=== PATIENT | female | born 1945 | race Caucasian/White ===

== ENCOUNTER → 2020-07-31 07:12 | Outpatient (CLI) | payer MEDICARE, SELFPAY ==
[2020-07-31 20:35] LABS: SARS-CoV-2 RNA PCR Negative
== END ==
PROVIDERS: PCP Internal Medicine
DX: R68.89 Other general symptoms and signs (principal); Z20.822 Contact with and (suspected) exposure to COVID-19
CPT/HCPCS: C9803; U0003; U0005

== ENCOUNTER → 2021-08-02 10:11 | Outpatient (CLI) | payer MEDICARE, SELFPAY ==
--- NOTE | ~2021-08-02 | MR_ITS ---
EXAMINATION: MR lumbar spine wo con DATE: 08/02/2021 10:46 INDICATION: Lumbar radiculopathy. Low back pain. TECHNIQUE: Magnetic resonance imaging (MRI) of the lumbar spine was performed without intravenous con trast. Sequences included sagittal T2-weighted FSE, sagittal T2-weighted FS FSE, sagittal T1-weighted FSE, and axial T2-weighted FSE. COMPARISON: None FINDINGS: There is 50 degrees levoscoliosis of thoracolumbar spine. There is severely decreased disc height at T9-T10 and T10-T11, moderately decreased disc height at T11-T12, and severely decreased dis c height from T12-L1 through L5-S1 with endplate remodeling. The distal spinal cord signal intensity is normal. The conus medullaris is at L1. The following disc levels are specifically discussed: L1-L2: The disc is bulging and has an annular fissure. There is moderate bilateral facet joint osteoa rthritis. There is mild bilateral neural foraminal stenosis. There is mild central canal stenosis. L2-L3: The disc is bulging and has an annular fissure. There is severe bilateral facet joint osteoart hritis. There is mild bilateral neural foraminal stenosis. There is mild central canal stenosis. L3-L4: The disc is bulging and has an annular fissure. There is severe bilateral facet joint osteoart hritis. There is moderate right and mild left neural foraminal stenosis. There is mild central canal stenosis. L4-L5: The disc is bulging and has an annular fissure. There is severe bilateral facet joint osteoart hritis. There is mild right and moderate left neural foraminal stenosis. There is mild central canal stenosis. There is severe stenosis of left lateral recess. L5-S1: The disc is bulging and has an annular fissure. There is severe bilateral facet joint osteoart hritis. There is mild right and moderate left neural foraminal stenosis. There is mild central canal stenosis. IMPRESSION: 1. Severe lumbar and lower thoracic spondylosis. 2. Thoracolumbar levoscoliosis. Reviewed, dictated and finalized at location A. 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
== END ==
PROVIDERS: PCP Internal Medicine; Visit Provider Nurse Practitioner Adult Health
DX: M47.26 Other spondylosis with radiculopathy, lumbar region (principal); M47.894 Other spondylosis, thoracic region
CPT/HCPCS: 72148

== ENCOUNTER 2021-11-25 14:56 | Outpatient (CLI) | payer MEDICARE, SELFPAY ==
--- NOTE | ~2021-11-25 | XR_ITS ---
. EXAMINATION: XR scoliosis survey DATE: 11/25/2021 15:50 INDICATION: Scoliosis. TECHNIQUE: Anteroposterior and lateral views of the entire spine standing were obtained. COMPARISON: Lumbar spine MRI 08/02/2021 FINDINGS: There is a total left hip arthroplasty. There is severe right hip osteoarthritis. Left isch ial tuberosity stands 6 mm higher than the left. There are 12 pairs of ribs. There are 5 lumbar segme nts. There is 2 mm anterolisthesis of C2 on C3 and C3 on C4, 2 mm retrolisthesis of C4 on C5 and C5 o n C6, and 2 mm anterolisthesis of C7 on T1. There is 46 degrees dextroscoliosis from T4 to T11 by the Wick method. There is 60 degrees levoscoliosis from T11 to L4. There is mild lordosis of the mid tho racic spine. There is severe cervical, thoracic, and lumbar spondylosis. IMPRESSION: 1. Scoliosis. 2. Severe spondylosis. Reviewed, dictated and finalized at location A.
--- NOTE | ~2021-11-25 | XR_ITS ---
EXAMINATION: XR lumbar spine min 4V DATE: 11/25/2021 15:50 INDICATION: Scoliosis. Chronic back pain and arthritis. TECHNIQUE: 4 views of lumbar spine standing including flexion and extension views were obtained. COMPARISON: Lumbar spine MRI 08/02/2021 FINDINGS: There is 56 degrees levoscoliosis of thoracolumbar spine. There is no abnormal motion with flexion or extension. Vertebral body heights are normal. There is severely decreased disc height in l ower thoracic spine, moderately decreased disc height at T12-L1, and severely decreased disc height f rom L1-L2 through L5-S1 with endplate remodeling. There is multilevel severe facet joint osteoarthrit is. There is severe right hip osteoarthritis. There is a total left hip arthroplasty. IMPRESSION: 1. Lumbar levoscoliosis. 2. Severe lumbar spondylosis. Reviewed, dictated and finalized at location A.
== END 2021-11-25 14:57 | disposition home or self-care (01) ==
PROVIDERS: PCP Internal Medicine; Visit Provider Neurological Surgery
DX: M41.9 Scoliosis, unspecified (principal); M47.896 Other spondylosis, lumbar region
CPT/HCPCS: 72082; 72110

== ENCOUNTER → 2022-09-04 08:49 | Outpatient (CLI) | payer MEDICARE, SELFPAY ==
--- NOTE | ~2022-09-04 | MR_ITS ---
MRI of the lumbar spine Clinical History: Radiculopathy Technique: Axial T2-weighted images, and sagittal T1-weighted, T2-weighted, and T2 fat-sat images wer e acquired. COMPARISON: 08/02/2021 Findings: Levoscoliosis is probably unchanged from prior exam. No acute fracture or definite subluxat ion identified. Osseous alignment is essentially unchanged. There are reactive marrow signal changes about the T10-T11 disc space due to underlying degenerative disc disease. No suspicious bone marrow s ignal abnormality seen. At L1-L2, there is degenerative disc narrowing with diffuse disc bulge and mild facet arthropathy. No guille spinal canal stenosis. There is severe right neural foraminal narrowing. Left neural foramen p reserved. At L2-L3, there is advanced degenerative disc narrowing. There is mild disc bulge with advanced facet arthropathy. No spinal canal stenosis. There is mild to moderate right neural foraminal narrowing. L eft neural foramen preserved. L3-L4, there is severe degenerative disc narrowing. There is minimal disc bulge with facet arthropath y. No spinal canal stenosis. There is probable severe right neural foraminal narrowing and moderate l eft neural foraminal narrowing. At L4-L5, there is advanced degenerative disc narrowing. There is diffuse disc bulge with facet arthr opathy. There is severe left lateral recess stenosis. There is severe left neural foraminal compromis e. There is minimal right neural foraminal narrowing. At L5-S1, there is degenerative disc narrowing with mild disc bulge and facet arthropathy. No guille s huey canal stenosis. There is severe left neural foraminal narrowing. Right neural foramen preserved . Paravertebral soft tissues are unremarkable. Impression: Moderate to advanced degenerative spondylosis, with multilevel advanced neural foraminal narrowing an d levoscoliosis. Please see details above. Severe left lateral recess stenosis at L4-L5. Reviewed, dictated and finalized at location . Impression: Moderate to advanced degenerative spondylosis, with multilevel advanced neural foraminal narrowing and levoscoliosis. Please see details above. Severe left lateral recess stenosis at L4-L5.
== END ==
PROVIDERS: PCP Internal Medicine; Visit Provider Nurse Practitioner Family
DX: M47.26 Other spondylosis with radiculopathy, lumbar region (principal)
CPT/HCPCS: 72148

== ENCOUNTER → 2022-09-30 12:51 | Outpatient (CLI) | payer MEDICARE, SELFPAY ==
--- NOTE | ~2022-09-30 | MR_ITS ---
EXAMINATION: MR thoracic spine wo con DATE: 09/30/2022 13:30 INDICATION: Mid to low back pain. Lumbar radiculopathy. TECHNIQUE: Magnetic resonance imaging (MRI) of the thoracic spine was performed without intravenous c ontrast. COMPARISON: None FINDINGS: There is 36 degrees dextroscoliosis of thoracic spine and 52 degrees levoscoliosis of thora columbar spine. There is 2 mm retrolisthesis of C4 on C5 and 2 mm anterolisthesis of C7 on T1. There is interbody fusion at C4-C5. There is severely decreased disc height from C5-C6 through T10-T11, mod erately decreased disc height at T11-T12, and severely decreased disc height at T12-L1 and L1-L2. The discs are bulging at most levels. There is mild central canal stenosis at the disc levels from C4-C5 through T7-T8 and from T9-T10 through L1-L2. There is multilevel facet joint osteoarthritis, severe at multiple levels. There is multilevel mild neural foraminal stenosis bilaterally. On the left, ther e is moderate neural foraminal stenosis at T4-T5 and T10-T11. The spinal cord signal intensity is nor mal. The conus medullaris is at L1. IMPRESSION: 1. Severe thoracic spondylosis. 2. Scoliosis. Reviewed, dictated and finalized at location A.
== END ==
PROVIDERS: PCP Internal Medicine; Visit Provider Nurse Practitioner Family
DX: M47.24 Other spondylosis with radiculopathy, thoracic region (principal); M41.9 Scoliosis, unspecified
CPT/HCPCS: 72146

== ENCOUNTER → 2023-02-19 11:57 | Outpatient (CLI) | payer MEDICARE, SELFPAY ==
--- NOTE | ~2023-02-19 | XR_ITS ---
Left Hand Technique: PA, oblique, and lateral views were obtained. Clinical History: Osteoarthritis Findings: No acute fracture or dislocation is seen. There is severe osteoarthritis, possible erosive osteoarthritis, at the fourth PIP joint. There is also severe osteoarthritis at the second and third PIP joints and third MCP joint. There are moderate to advanced degenerative changes throughout the DI P joints. There is advanced degenerative change of the interphalangeal joint of the thumb. Soft tissu es are unremarkable. Impression: Extensive osteoarthritis, predominantly involving the interphalangeal joints, as well as the third MC P joint. Reviewed, dictated and finalized at location M. Impression: Extensive osteoarthritis, predominantly involving the interphalangeal joints, a s well as the third MCP joint.
== END ==
PROVIDERS: PCP Internal Medicine; Visit Provider Internal Medicine
DX: M19.042 Primary osteoarthritis, left hand (principal)
CPT/HCPCS: 73130

== ENCOUNTER 2024-08-18 14:23 | Outpatient (CLI) | payer MEDICARE, SELFPAY ==
--- NOTE | ~2024-08-18 | CT_ITS ---
EXAMINATION: CT lumbar spine wo con DATE: 08/18/2024 14:54 INDICATION: Lumbar spondylosis. Lumbar radicular pain. TECHNIQUE: Computed tomography (CT) of the lumbar spine was performed without intravenous contrast. A utomated exposure control and iterative reconstruction technique were employed. The dose-length produ ct was 530.62 mGy-cm. COMPARISON: Lumbar spine radiographs 08/18/2024 FINDINGS: There is 50 degrees levoscoliosis of thoracolumbar spine. There is mild chronic anterior we dging of T11-L1 vertebral bodies. There is severely decreased disc height from T10-T11 through L5-S1. The following disc levels are specifically discussed: L1-L2: The disc is bulging. There is moderate right and severe left facet joint osteoarthritis. There is mild bilateral neural foraminal stenosis. There is mild central canal stenosis. L2-L3: The disc is bulging. There is severe bilateral facet joint osteoarthritis. There is mild bilat eral neural foraminal stenosis. There is mild central canal stenosis. L3-L4: The disc is bulging. There is severe bilateral facet joint osteoarthritis. There is mild bilat eral neural foraminal stenosis. There is mild central canal stenosis. L4-L5: The disc is bulging. There is severe bilateral facet joint osteoarthritis. There is mild right and moderate left neural foraminal stenosis. There is mild central canal stenosis. L5-S1: The disc is bulging. There is severe bilateral facet joint osteoarthritis. There is mild bilat eral neural foraminal stenosis. There is mild central canal stenosis. IMPRESSION: 1. Severe lumbar spondylosis. 2. Thoracolumbar levoscoliosis. Reviewed, dictated and finalized at location L.
--- NOTE | ~2024-08-18 | XR_ITS ---
3 VIEWS LUMBAR SPINE Ordering provider: Anton Wei, CORDWOOD CUTTER History: . Presence of neurostimulator . Comparison: November 11, 2021 FINDINGS: VERTEBRAL BODIES:Levoscoliosis. Multilevel degenerative disc disease. No visible fracture or subluxa tion. DISK SPACES: Narrowing of all disc spaces. Multilevel facet joint disease. SOFT TISSUES: Normal. Spinal stimulator is noted. . Bilateral hip arthroplasty. IMPRESSION: No acute osseous abnormality lumbar spine. Multilevel degenerative disc disease. Reviewed, dictated and finalized at location A.
== END 2024-08-18 14:24 | disposition home or self-care (01) ==
PROVIDERS: PCP Internal Medicine; Visit Provider Nurse Practitioner Family
DX: M47.26 Other spondylosis with radiculopathy, lumbar region (principal)
CPT/HCPCS: 72100; 72131

== ENCOUNTER 2024-10-06 09:26 | Outpatient (CLI) | payer MEDICARE, SELFPAY ==
--- NOTE | ~2024-10-06 | XR_ITS ---
3 VIEWS THORACIC SPINE Ordering provider: Chiqui Carvajal MD History: . M41.9 - Scoliosis, unspecified . Comparison: None. FINDINGS: VERTEBRAL BODIES: Normal height and alignment. No visible fracture or subluxation. S-shaped scoliosis . Degenerative changes of the spine. DISK SPACES: Multilevel disc space narrowing of the upper mid and lower thoracic areas. SOFT TISSUES: Normal. Spinal stimulator is seen with the tip in the mid thoracic area. IMPRESSION: No definite acute osseous abnormality of the thoracic spine. S-shaped scoliosis. Multilevel degenerative disc disease. Reviewed, dictated and finalized at location A.
--- NOTE | ~2024-10-06 | CT_ITS ---
CT thoracic spine wo con Ordering provider: Chiqui Carvajal MD History: . M41.9 - Scoliosis, unspecified . Comparison: None. Technique: CT thoracic spine without contrast. Automated exposure control and iterative reconstructi on technique were employed. The dose-length product was 281.31 mGy-cm. FINDINGS: VERTEBRAE: Normal height and alignment. No subluxation or visible acute fracture. Degenerative change s of the spine. S-shaped scoliosis in the thoracolumbar area. DISC SPACES: Narrowing of all the disc spaces. No significant stenosis as visualized. PARASPINOUS SOFT TISSUES: Normal. Spinal stimulator is seen IMPRESSION: No acute osseous abnormality of the thoracic spine. Multilevel degenerative disc disease. S-shaped scoliosis involving the thoracolumbar area. Reviewed, dictated and finalized at location A.
== END 2024-10-06 09:27 | disposition home or self-care (01) ==
LOC: MICIMG 09:29
PROVIDERS: PCP Internal Medicine; Visit Provider Neurological Surgery
DX: M41.9 Scoliosis, unspecified (principal)
CPT/HCPCS: 72072; 72128

== ENCOUNTER 2024-11-04 11:48 | Outpatient (CLI) | payer MEDICARE, SELFPAY ==
--- NOTE | ~2024-11-04 | XR_ITS ---
XR chest 2V 11/04/2024 13:17 Indication: Shortness of breath Procedure: 2 view chest Comparison: No prior studies for comparison. Findings: Heart size normal. There is scoliosis. Spinal stimulator leads are noted overlying the mid thoracic spine. No focal air space disease, pulmonary edema, pleural effusion or suspected pneumothor ax. Impression: 1: No acute cardiopulmonary disease. Reviewed, dictated and finalized at location A. Impression: 1: No acute cardiopulmonary disease.
--- OUTSIDE RECORDS SUMMARY | 2024-11-04 11:58 | XMS_ITS | Clinical Summary ---
Author Organization [facility] [employer] Address [address] [place] [address] [place] [address] Care Team Providers Care Vp Ad Products And Planning Name Role Phone Tanmay Velarde MD Primary Care Provider [phone] Source Comments [facility],non-owned Affiliates and Associated Physician Practices is amultiple site organization consisting of ambulatory clinics and hospital sitesin [place], [place], [place] and [place]. This disclosure is being madepursuant to the Care Everywhere program and may not contain all information available regarding this patient. Last updated 18.[facility] [employer] Allergies Active Allergy Reactions Criticality Noted Date Comments Nsaids Other 01/29/2023 Liver issues Acetaminophen Other 01/29/2023 Liver issues Medications * Be aware that medications may not be up to date on this document. Alwaysverify current medications with the patient. Magnesium 400 MG Take by mouth DAILY. 01/12/2017 Active amLODIPine (NORVASC) 5 MG tablet Take 1 (one) tablet by mouth once daily 1 10/27/2017 Active atenolol (TENORMIN) 50 MG tablet Take 1 (one) tablet by mouth once daily 1 09/24/2017 Active Calcium Carbonate-Vitam in D 600-125 MG-UNIT Take 2 tablets by mouth once daily Active Vitamins-Lipotr opics (MULTIPLE VITAMIN) capsule Take 1 (one) capsule by mouth once daily Active Loratadine 10 MG Take 1 mg by mouth once daily as needed Active hydroCHLOROthia zide (Hydrodiuril) 12.5 MG Take 1 (one) tablet by mouth once daily 12/24/2021 Active cycloSPORINE (Restasis) 0.05 % ophthalmic suspension INSTILL 1 DROP INTO BOTH EYES TWICE A DAY (REPLACING MULTIDOSE) 05/16/2021 Active Praluent 75 MG/ML injection INJECT 1 ML (75 MG TOTAL) INTO THE SKIN EVERY 14 (FOURTEEN) DAYS. INDICATIONS: HEART 10/08/2022 Active omeprazole (PriLOSEC) 40 MG capsule Take 1 (one) capsule by mouth once daily as needed 11/26/2022 Active traMADol (Ultram) 50 MG tablet Take 1 (one) tablet by mouth every 6 hours as needed 03/08/2024 Active azaTHIOprine (Imuran) 50 MG tabletIndicatio ns:Autoimmune hepatitis (HCC) TAKE 1 TABLET BY MOUTH EVERY DAY 90 tablet 3 05/23/2024 Active Active Problems Problem Noted Date Diagnosed Date Primary osteoarthritis of right hip 04/24/2022 03/12/2023 S/P partial resection of colon 11/24/2016 1 Autoimmune hepatitis 07/20/2014 Overview (01/28/2022): 01/28/22 Fibroscan CAP 214, LSM 4.4 kPa Fatty (change of) liver, not elsewhere classifie d 03/16/2014 Abnormal levels of other serum enzymes 4 Hypertension 10/22/2013 03/12/2023 Overview (03/12/2023): HYPERTENSION NOS HYPERTENSION NOS Osteoporosis 10/22/2013 03/12/2023 Overview (03/12/2023): OSTEOPOROSIS NOS OSTEOPOROSIS NOS Pure hypercholesterolemia 10/22/20132022 Overview (03/12/2023): PURE HYPERCHOLESTEROLEM Vitamin D deficiency 10/22/2013 03/12/2023 Overview (03/12/2023): VITAMIN D DEFICIENCY NOS VITAMIN D DEFICIENCY NOS Family History Medical History Relation Name Comments CVA Father Status: d None Known Mother Status: d Cancer Paternal Grandmother Stomach ; Status: Relation Name Status Comments Father Mother Paternal Grandmother Social History Tobacco Use Types Packs/Day Years Used Date Smoking Tobacco: Never Smokeless Tobacco: Never Tobacco Cessation:Counseling Given: Not Answered Alcohol Use Standard Drinks/Week Comments Yes 1 (1 standard drink = 0.6 oz pur e alcohol) 1 drink every week or two AUDIT-C Answer Date Recorded Q1: How often do you have a drink containing alc ohol? Never 01/29/2023 Average Number of Drinks Not on file 023 Frequency of Binge Drinking Not on file 01/07 Comments No Sex and Gender Information Value Date Recorded Sex Assigned at Not on file Legal Sex Female 5:32 PM [employer] Gender Identity Not on file Sexual Orientation Not on file Last Filed Vital Signs Vital Sign Reading Time Taken Comments Blood Pressure 133/68 03/14/2024 1:43 PM CDT Pulse 58 03/14/2024 1:43 PM CDT Temperature 36.6 C (97.9 F) 03/14/2024 1:43 PM CDT Respiratory Rate 20 03/30/2023 1:29 PM CDT Oxygen Saturation 100% 03/14/2024 1:43 PM CDT Inhaled Oxygen Concentration - - Weight 55.8 kg (123 lb) 03/14/2024 1:43 PM CDT Height 148.6 cm (4' 10.5) 03/14/2024 1:43 PM CD T Body Mass Index 25.27 03/14/2024 1:43 PM CDT Plan of Treatment Upcoming Encounters Date Type Department Care Team (Late st Contact Info) Description 03/13/2025 11:00 AM CDT Office Visit [facility] [address] [facility] [place] [address] Casey Choi MD [address] [place] [address] Health Maintenance Due Date Last Done Comments MEDICARE AWV 12 MONTHS 1943 DTAP/TDAP/TD VACCINES (1 - Tdap) 1962 PNEUMOCOCCAL VACCINE 50+ (1 of 2 - PCV) 1962 ZOSTER VACCINE (1 of 2) 1962 Respiratory Syncytial Virus (RSV) Vaccine Pt: or over 60 yrs (1 - 1-dose 75+ series) 2018 COVID-19 VACCINE ( season) 2024 02/19/2022, 09/23/2021, 02/21/2021, Additional history exists DEPRESSION SCREENING 06/08/2024 BONE DENSITY TESTING Completed 07/29/2023, 01/30/20 INFLUENZA VACCINE Completed 02/13/2024, , 02/17/2018, Additional history exists HEPATITIS B VACCINE Aged Out No longe r eligible based on patient's age to complete this topic HIB VACCINE Aged Out No longer eligi ble based on patient's age to complete this topic HPV VACCINE Aged Out No longer eligi ble based on patient's age to complete this topic MENINGOCOCCAL (Group B) VACCINE SHARED DECISION-MAKING Aged Out No longer eligible based on patient's age to complete this topic MENINGOCOCCAL GROUPS A/C/Y/W VACCINE Aged Out No longer eligible based on patient's age to complete this topic Goals Goal Patient Goal Type Associated Problems Recent Progress Patient-Stated? Author Medication Management General On track( 024 1:47 PM CDT) Chiqui Jacob, RN Note: Expected end date: Ongoing Interventions: Take all medications as prescribed Let your doctor know right away about any changes in your medications Make sure to request a refill of your medication at least one week prior to your last dose Medical Devices Implanted Type Area Practicing Md Anesthesiologist Device Identifier Shelf Expiration Date Model / Serial / Lot Lead Nrstm 60cm Penta 3mm Pdl 16 [facility] - [id number] Implanted:Qty: 1 on 01/29/2023 by Jesús Chen MD at [facility] [place] Left: Spine [employer] 12/16/2024 [id number] / [id number] / Sys Impl 1.9mm [employer] Biceps [place] - [id number] Implanted:Qty: 1 on 01/29/2023 by Jesús Chen MD at [facility] Left: Spine [employer] 12/09/2024 [id number] / [id number] / Slnt Dura Duraseal Pg Trilysine Amine 5 Implanted:Qty: 1 on 01/29/2023 by Jesús Chen MD at [facility] Left: Spine [employer] Krista 03/07/2024 [id number] / / [id number] Implantable Pulse Generator Implanted:Qty: 1 on 01/29/2023 by Jesús Chen MD at [facility] Left: Spine [id number] / / [place] [address] MEDICARE COMMERCIAL GENERIC MEDICARE Care Teams Vp Ad Products And Planning Relationship Specialty Start Date End Date Tamnay Velarde MD [address] [address] PCP - General Internal Medicine 01/28/22
--- OUTSIDE RECORDS SUMMARY | 2024-11-04 11:58 | XMS_ITS | Referral Summary ---
Author Organization [facility] [address] Address [address] [place] [address] Care Team Providers Care Team Foreman Name Role Phone Molina Castillo MD Primary Care Provider [phone] Allergies No known active allergies Medications meloxicam (MOBIC) 15 mg tablet Take 15 mg by mouth daily 11/07/2017 Active vitamins-lipotr opics 200-100 mg tablet Take 1 tablet by mouth daily Active amLODIPine (NORVASC) 5 mg tablet Take 5 mg by mouth daily 10/30/2019 Active atenoloL (TENORMIN) 50 mg tablet Take 50 mg by mouth daily 09/24/2017 Active azaTHIOprine (IMURAN) 50 mg tablet Take 50 mg by mouth daily 10/23/2019 Active calcium carbonate-vitam in D3 600-125 mg-unit tablet Take 1 tablet by mouth daily Active cefuroxime (CEFTIN) 500 mg tablet Take 500 mg by mouth daily as needed 09/24/2017 Active magnesium oxide 400 mg magnesium tablet Take by mouth daily 01/12/2017 Active olmesartan (BENICAR) 40 mg tablet Take 1 tablet by mouth daily Active omeprazole (PriLOSEC) 40 mg capsule Take 40 mg by mouth daily 10/06/2014 Active zolpidem (AMBIEN) 5 mg tabletIndicatio ns:Sleep-Onset Insomnia Take 5 mg by mouth nightly as needed for sleep Active Restasis 0.05 % ophthalmic emulsion INSTILL 1 DROP INTO BOTH EYES TWICE A DAY (REPLACING MULTIDOSE) 03/19/2020 Active Active Problems Problem Noted Date Diagnosed Date Mixed conductive and sensori neural hearing loss of left ear with restricted hearing of right ear 12/23/2019 Impacted cerumen of left ear 12/23/2019 Pure hypercholesterolemia 10/22/2013 Overview (09/12/2016): PURE HYPERCHOLESTEROLEM Vitamin D deficiency 10/22/2013 Overview (09/12/2016): VITAMIN D DEFICIENCY NOS Osteoporosis 10/22/2013 Overview (09/12/2016): OSTEOPOROSIS NOS Hypertension 10/22/2013 Overview (09/12/2016): HYPERTENSION NOS Social History Tobacco Use Types Packs/Day Years Used Date Smoking Tobacco: Never Smokeless Tobacco: Never Alcohol Use Standard Drinks/Week Comments Yes 0 (1 standard drink = 0.6 oz pur e alcohol) Comments Unknown Sex and Gender Information Value Date Recorded Sex Assigned at Not on file Legal Sex Female 1:03 AM 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 LAB 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 Gender Identity Not on file Sexual Orientation Not on file Last Filed Vital Signs Vital Sign Reading Time Taken Comments Blood Pressure 94/54 05/15/2012 8:15 AM 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 LAB MANAGER Pulse 59 05/15/2012 8:15 AM 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 LAB MANAGER Temperature 36.7 C (98 F) 05/21/2020 10:39 AM 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 LAB MANAGER Respiratory Rate 17 11/19/2020 11:15 AM CDT Oxygen Saturation - - Inhaled Oxygen Concentration - - Weight 51.3 kg (113 lb) 11/19/2020 11:15 AM CDT Height 152.4 cm (5') 11/19/2020 11:15 AM CDT Body Mass Index 22.07 11/19/2020 11:15 AM CDT Plan of Treatment Not on file Insurance MEDICARE [facility] INSURANCE Care Teams Team Foreman Relationship Specialty Start Date End Date Molina Castillo MD [address] [place] [id number] PCP - General 07/17/09
--- OUTSIDE RECORDS SUMMARY | 2024-11-04 11:58 | XMS_ITS | Data Portability ---
Author Organization [facility] for [facility], [id number] Address [address] [place] [address] Assessment No assessment recorded. Plan of Treatment Reminders Order Date Submit Date Provider Last Modified By Organization Details Last Modified Time Details Appointments ANNUAL- EST 15 2025 12:00P M JESUS ARGUELLES MD Not available Not available Not available Lab None recorded. Referral None recorded. Procedures None recorded. Surgeries None recorded. Imaging MAMMO, screening , digital, bilateral 2024 025 [facility] [address] [place], [address], 09/14/2024 12:56:02 Medication Orders None recorded. Patient TargetsNo targets recorded. Patient InstructionsNo instructions recorded. Reason for Referral None Reported. Results Created Date Observation Date Name Description Value Unit Range Abnormal Flag Note LastModifiedBy Organization Detail LastModifiedTime 10/06/1910/04/2024 MAMMO , scree patricia, digit al, bilat eral No observ ation record ed. [facility] [address] [place], [address], 10/06/2024 12:14:04 Result Notes None recorded. Problems Name Problem SNOMED Code Status Onset Date Resolution Date Notes Provider Name and Address Organization Details Recorded Time Arthritis 6622753 Active 2024 Sudheer hill, [facility] 12:00:29 Autoimmune disease 86415127 Active 2024 Sudheer Wuebbels null, [place] - [facility] 5 12:00:45 Osteopenia 626991127 Active 2024 Sudheer Dunn [place], [place] - [facility] 5 12:01:12 Liver enzymes level above reference range 191799937 Active 2024 Sudheer [place] [facility] 5 12:01:52 Hypertensi ve disorder 80461008 Active 2024 Sudheer [place] - [facility] 5 12:02:11 Scoliosis deformity of spine 281993056 Active 2024 Sudheer [place] - [facility] 5 12:02:26 Disorder of bone and articular cartilage 497045913 Active 2020 Disorder of Bone & Cartilage , Other (Osteopen ia), Problem Code: 733.90; Problem Code Type: ICD-9; Not Available [facility] 5 12:19:06 Essential hypertensi on 35317663 Active High Blood Pressure, Problem Code Descripti on: 'High Blood Pressure' ; Not Available [facility] 5 12:19:06 Notes:*Problem Name: Elevate d liver enzymes *Problem Code Type: ICD-9 *Problem Code: 790.5 *ICD-10 Codes: *Problem Status: Active *Comments: Elevated liver enzymes, Problem Notes None recorded. Procedures Surgical History Date Name Laterality Status Provider Name and Address Organization Details Recorded Time 10/05/19 25 Date of Last Mammogram completed JESUS ARGUELLES MD [address], [place], [address], [facility] - [facility] 10/06/2024 09:58:30 06/08/19 17 Date of Last Colonoscopy completed Sudheer Dunn CT - [facility] 08/23/2024 12:04:00 10/18/19 10 Date of Last Pap Smear completed Sudheer Dunn CT - [facility] 08/23/2024 12:03:22 Tonsillectomy completed [facility] 08/23/2024 12:08:41 operation on hip joint completed [facility] 08/23/2024 12:08:53 total replacement of hip completed [facility] 08/23/2024 12:09:04 procedure on foot completed [facility] 08/23/2024 12:09:36 procedure on eye completed [facility] 08/23/2024 12:14:31 Colonoscopy completed [facility] 08/23/2024 12:14:40 partial resection of colon completed [facility] 08/23/2024 12:17:08 excision of bunion completed [facility] 08/23/2024 12:17:45 Breast Biopsy completed [facility] 08/23/2024 12:18:00 procedure on back completed [facility] 08/23/2024 12:18:22 Unlisted procedure spine completed Not Available [facility] 10/06/2024 14:15:22 Partial removal of colon completed Not Available [facility] 10/06/2024 14:15:23 foot repair completed Not Available [facility] 10/06/2024 14:15:23 tonsillectomy completed Not Available [facility] 10/06/2024 14:15:23 breast biopsy and related procedures completed Not Available [facility] 10/06/2024 14:15:23 repair of hip completed Not Available [facility] 10/06/2024 14:15:23 repair of eye completed Not Available [facility] 10/06/2024 14:15:23 colonoscopy completed Not Available [facility] 10/06/2024 14:15:23 Imaging Results None recorded. Procedure Notes None recorded. Medical Equipment None Reported. Allergies No known drug allergies Medications Name Sig Start Date Stop Date Status Note LastModified by Organization Details LastModified Time azithromyci n 250 mg tablet TAKE 2 TABLETS BY MOUTH TODAY, THEN TAKE 1 TABLET DAILY FOR 4 DAYS DIRECTED 08/24 completed Not Available Not Available Not Available azathioprin e 50 mg tablet TAKE 1 TABLET BY MOUTH EVERY DAY active Not Available Not Available No t Available amlodipine 5 mg tablet TAKE 1 TABLET (5 MG TOTAL) BY MOUTH DAILY. INDICATIO NS: HEART active Not Available Not Available No t Available omeprazole 40 mg capsule,del ayed release TAKE 1 CAPSULE (40 MG TOTAL) BY MOUTH DAILY NEEDED. INDICATIO NS: GERD active Not Available Not Available No t Available tramadol 50 mg tablet TAKE 1 TABLET BY MOUTH TWICE A DAY NEEDED FOR CHRONIC PAIN active Not Available Not Available No t Available atenolol 50 mg tablet TAKE 1 TABLET (50 MG TOTAL) BY MOUTH DAILY. INDICATIO NS: HTN active Not Available Not Available No t Available olmesartan 40 mg tablet TAKE 1 TABLET (40 MG TOTAL) BY MOUTH DAILY. INDICATIO NS: HTN active Not Available Not Available No t Available hydrochloro thiazide 12.5 mg tablet TAKE 1 TABLET (12.5 MG TOTAL) BY MOUTH DAILY. INDICATIO NS: DIURETIC active Not Available Not Available No t Available Praluent Pen 75 mg/mL subcutaneou s pen injector INJECT 1 ML (75 MG TOTAL) INTO THE SKIN EVERY 14 (FOURTEEN ) DAYS. INDICATIO NS: HEART active Not Available Not Available No t Available Vitals Date Recorded Body height Body mass index (BMI) Body weight Systolic blood pressure Diastolic blood pressure Provider Name and Address Organization Details Last Updated DateTime 08/24/2024 142.88 cm 26.9 kg/m2 41509.68 g 120 mm[Hg] 60 mm[Hg] Sudheer Dunn [facility] for [facility] 13:03:33 Social History Question Answer Notes LastModified by Organizat ion Details LastModified Time Tobacco Smoking Status Never Smoker Sudheer Dunn [facility] 08/24/2024 13:03:44 Do You Have An Advance Directive? Yes Information not available 08/24/2024 How Many Years Have You Consumed Alcohol? 15 Information not available 08/24/2024 What Is Your Level Of Caffeine Consumption? Moderate Information not available 08/24/2024 What Type Of Diet Are You Following? REGULAR Information not available 08/24/2024 What Is Your Relationship Status? Information not available 08/24/2024 Sex: Unknown Functional Status Question Answer Note LastModified by [employer] ion Details LastModified Time Do you use any illicit or recreational drugs? No Information not available 10/06/2024 What is your level of alcohol consumption? Occasional Information not available 08/24/2024 Are you currently employed? 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 Family History Relationship Description Onset Age of this Age Resolved Age Notes LastModified by Organization Details LastModified Time Father Alzheimer's disease [email or web address] Not available 2024 12:06:47 Father Heart disease [email or web address] Not available 2024 12:06:58 Father Osteoporosis [email or web address] Not avai lable 08/23/2024 12:07:57 Father Hypertensive disorder [email or web address] Not available 2024 12:08:13 Father Family history of stroke [email or web address] Not available 2024 12:08:31 Unspecified Relation Family history taken Family Medica l Histor y Review ed - jl Not available 10/06/2024 15:07:32 Father Cerebrovascu lar accident Stroke [email or web address] Not available 06/2024 15:07:32 Mother Osteoporosis Osteop orosis Not available 10/06/2024 15:07:32 Medical History Condition Response GI- Liver Disease/Hepatitis Y Ortho-Other Y Endocrinology- Osteopenia Y Cancer- Genetic screening Cardiology- High Blood Pressure Y Rheumatology- Arthritis Y Reviewed with no changes Y Gynecological History Statement/Question Response History of PCOS N History of Fibroids N Flow Moderate Date of Last Mammogram 10/04/2024 Date of LMP History of Infertility N History of Cervical Dysplasia N History of Vulvar Dysplasia N Current Control Method: None History of HPV N Age at Menarche 11 History of Recurrent Ovarian Cysts N If Post Menopausal, Age at Menopause 1 History of Endometriosis N Date of Last Colonoscopy 06/08/2016 Frequency of Cycle (Q days) 0 Sexually Active? N History of Abnormal PAP N History of Dysmenorrhea N Date of Last Pap Smear 10/17/2009 History of Sexually Transmitted Infectio n N Date of Last Cholesterol Screening 06/08 Date of Last Bone Density 07/2023 Obstetrics History GPAL:G 2 P 2 0 0 2 Type Value Multiple Births 0 Full Term 2 Induced 0 Spontaneous 0 Premature 0 Living 2 Ectopics 0 Total 2 Past Encounters Encounter ID Performer Location Encounter Start Date Encounter Closed Date Diagnosis/Indication Diagnosis SNOMED-CT Code Diagnosis ICD10 Code Diagnosis Note [id number] JESUS ARGUELLES MD [id number] [facility] [address] [place] [address] 08/24/2024 12:44:52 08/24/2024 13:22:26 Screening mammography 73673830 Z12.31 Gynecologi c examination 23045811 Z01.419 Health Concerns Section Related Observation LastModified by Organization Detai ls LastModified Time None Recorded Concern Status LastModified by Organization Details LastModified Time None Recorded Advance Directives Directive Y: Payers Insurance Date Sequence Insurance Name Policy Number Policy Valadez Covered Member ID Valadez Member ID Guarantor Name 09/05/2024 2 [employer] (MEDICARE SUPPLEMENT) Sita Saunders [id number] Sita Saunders 08/24/2024 1 [place] Sita Saunders [id number] Sita Saunders Notes Date Note Type Note Provider Name and Address Organization Details Recorded Time 08/24/2024 text/html 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 - McwhcReported bypatient.Urinary symptoms:No hematuria; No incontinence Vulvar complaints:None Vaginal complaints:none Gastrointestinal symptoms:no gastrointestinal symptoms Breast:No breast pain; No breast lump; No nipple discharge Menopausal Symptoms:No menopausal symptoms; Normal vaginal lubrication Psychological symptoms:No depression; No anxiety; No PMDD geriatric physical therapist 3x weekly and doing fine, very social, feels great JESUS ARGUELLES MD [address], [place], [address], [facility] 08/24/2024 13:17:32 OBGyn Episode No OBEpisode recorded.
--- OUTSIDE RECORDS SUMMARY | 2024-11-04 11:58 | XMS_ITS | Encounter Summary ---
Author Organization [facility] Address [address] [place] [address] [place] [address] Care Team Providers Care Inventory Technician Name Role Phone Tanmay Velarde MD Primary Care Provider [phone] Encounter Details Date Type Department Care Team (Late st Contact Info) Description 02/03/2023 Telephone [facility] - Neurosurgery [address] [place] [address] [address] [place] [id number] Jesús Chen MD [address] [place] [address] Social History Tobacco Use Types Packs/Day Years Used Date Smoking Tobacco: Never Smokeless Tobacco: Never Alcohol Use Standard Drinks/Week Comments Yes 1 [...] on file Legal 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 RE: Follow up Received: Today Bronwyn Dexter RN [place], Lori Hi, I called her daughter. She said the numbers listed are correct but she will have her mom call to schedule f/u appt Thanks Bronwyn HARRIS ?? Schedule with Dr. Chen in 2 weeks per [facility] Msg documented in this encounter Plan of Treatment Upcoming Encounters Date Type Department Care Team (Late st Contact Info) Description 03/13/2025 11:00 AM CDT Office Visit [facility] [address] [place] [address], [place] [address] Casey Choi MD [address] [place] [address] [place] [address] documented as of this encounter Goals Goal Patient Goal Type Associated Problems Recent Progress Patient-Stated? Author Medication Management General On track( 024 1:47 PM CDT) No Chiqui Babb RN Note: Expected end date: Ongoing Interventions: Take all medications as prescribed Let your doctor know right away about any changes in your medications Make sure to request a refill of your medication at least one week prior to your last dose documented as of this encounter Visit Diagnoses Not on filedocumented in this encounter Care Teams Inventory Technician Relationship Specialty Start Date End Date Tanmay Velarde MD [address] [facility] [address] [place] [id number] PCP - General Internal Medicine 01/28/22 documented as of this encounter
--- OUTSIDE RECORDS SUMMARY | 2024-11-04 11:58 | XMS_ITS | Clinical Summary ---
Author Organization [facility] Address [address] [place] [address] Care Team Providers Care Trimmer Helper Name Role Phone Unavailable Primary Care Provider Unavailabl e Social History Tobacco Use Types Packs/Day Years Used Date Smoking Tobacco: Never Assessed Comments Unknown Sex and Gender Information Value Date Recorded Sex Assigned at Not on file Legal Sex Female 11:55 AM GALLEY HAND Gender Identity Not on file Sexual Orientation Not on file Plan of Treatment Health Maintenance Due Date Last Done Comments DEXA Bone Density 1945 Hepatitis C Virus (HCV) Screening 1945 TdaP Immunization 1945 Pneumococcal Immunization (50+ years) (1 of 1 - PCV) 1993 Zoster Immunization (2 of 2) 04/22/2018 02/25/2018 Respiratory Syncytial Virus (RSV) Immunization (Adult) (1 - 1-dose 75+ series) 2018 Influenza Immunization (#1) 02/07/202402/06, 02/26/2017, 03/14/2016, Additional history exists SARS-COV-2 Immunization ( season) 2024 DTaP/Tdap/Td Immunization Discontinued 10/07/2006 Hepatitis B Immunization Aged Out No longer eligible based on patient's age to complete this topic Meningococcal Immunization (ACWY) Aged Out No longer eligible based on patient's age to complete this topic Rotavirus Immunization Aged Out No lo nger eligible based on patient's age to complete this topic
--- OUTSIDE RECORDS SUMMARY | 2024-11-04 11:58 | XMS_ITS | Clinical Summary ---
Author Organization [facility] [address] Address [address] [place] [address] Care Team Providers Care Machine Adjuster Leader Name Role Phone Molina Castillo MD Primary Care Provider [phone] Allergies No known active allergies Medications meloxicam [...] NOS Hypertension 10/22/2013 Overview (09/12/2016): HYPERTENSION NOS Surgical History Surgery Date Site/Laterality Comments TONSILLECTOMY Tonsillectomy EYE SURGERY TOTAL HIP ARTHROPLASTY Left Medical History Medical History Date Comments Osteoporosis Osteoporosis Hypertension hypertension Autoimmune disease HL (hearing loss) Family History Medical History Relation Name Comments Stroke Father Osteoporosis Other Family history of Osteoporosis; Relation Name Status Comments Father Other Social History Tobacco Use Types Packs/Day Years Used Date Smoking Tobacco: Never Smokeless Tobacco: Never Alcohol Use Standard Drinks/Week Comments Yes 0 (1 standard drink = 0.6 oz pur e alcohol) Comments Unknown Sex and Gender Information Value Date Recorded Sex Assigned at Not on file Legal Sex 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 Gender Identity Not on file Sexual Orientation Not on file Obstetrics History Last Filed Vital Signs Vital Sign Reading Time Taken Comments Blood Pressure 94/54 05/15/2012 8:15 AM CASINO GAMING WORKER Pulse 59 05/15/2012 8:15 AM CASINO GAMING WORKER Temperature 36.7 C (98 F) 05/21/2020 10:39 AM CASINO GAMING WORKER Respiratory Rate 17 11/19/2020 11:15 AM CDT Oxygen Saturation - - Inhaled Oxygen Concentration - - Weight 51.3 kg (113 lb) 11/19/2020 11:15 AM CDT Height 152.4 cm (5') 11/19/2020 11:15 AM CDT Body Mass Index 22.07 11/19/2020 11:15 AM CDT Plan of Treatment Health Maintenance Due Date Last Done Comments Depression Screening 1945 Fall Risk Assessment 1945 Hepatitis B Screening 1961 Well Visit 65+ 2008 Pneumococcal vaccine 65+ (2 of 2 - PCV) 12/24/2022 12/24/2021 Osteoporosis Screening-Bone Density Scan 01/29/2023 01/29/2021 Influenza Vaccine (Season Ended) 2025 01/29/2020, 02/17/2018, 02/26/2017, Additional history exists DTaP/Tdap/Td Vaccine (2 - Td or Tdap) 11/16/2028 11/16/2018, 10/07/2006 Zoster Vaccine Completed 05/05/2018, 02/25/2018 Insurance MEDICARE [facility] INSURANCE Care Teams Machine Adjuster Leader Relationship Specialty Start Date End Date Molina Castillo MD [address] [place] [id number] PCP - General 07/17/09
--- NOTE | 2024-11-04 12:47 | ECG_ITS ---
Test Date: 2024-11-04 13:05:30 Measurements Intervals [place] Rate: 50 P: 28 MI: 226 QRS: -39 QRSD: 90 T: -12 QT: 416 QTc: 381 Interpretive Statements SINUS BRADYCARDIA WITH FIRST DEGREE AV BLOCK POSSIBLE LEFT ATRIAL ENLARGEMENT [-0.1mV P WAVE IN V1/V2] MARKED LEFT AXIS DEVIATION [QRS AXIS < -30] POSSIBLE ANTERIOR MYOCARDIAL INFARCTION [30 ms Q WAVE IN V3/V4, OR R < 0.2 mV IN V4], PROBABLY OLD No previous ECG available for comparison Electronically Signed On 11-04-2024 15:10:50 CDT by Nisha Little M.D.
[2024-11-04 13:27] LABS: Hematocrit 41.4 % (37.0-47.0); Hemoglobin 13.8 g/dL (12.0-15.0); Mean Corpuscular HGB Conc 33.3 g/dl (32-36); Mean Platelet Volume 9.3 fl (7.4-10.4); Platelet Count Result 242 k/mm3 (150-375); Red Blood Count 4.06 M/mm3 (4.2-5.4); Red Cell Distribution Width 12.9 % (11.5-14.5); White Blood Count 5.5 K/mm3 (4.5-10.0)
[2024-11-04 13:29] LABS: Add Urine Microscopic? NO; Appearance Urine Clear (Clear); Bilirubin Urine Negative (Negative); Blood Urine Negative (Negative); Color Urine Yellow (Yellow); Glucose Urine UA Negative (Negative); Ketones Urine Negative (Negative); Leukocyte Esterase Ur Negative LEU/UL (Negative); Nitrate Urine Negative (Negative); Protein Urine Negative (Negative); Specific Grav Ur 1.009 (1.001-1.035); Urobilinogen Urine 0.2 mg/dL (<2.0)
[2024-11-04 13:36] LABS: Anion Gap 8 mmol/L (4-12); Blood Urea Nitrogen 15 mg/dL (7-17); Calcium 10.6 mg/dL (8.4-10.2); Carbon Dioxide 29 mmol/L (22-30); Chloride 95 mmol/L (98-107); Estimated Glomerular Filt Rate > 60; Glucose 83 mg/dL (65-110); Potassium 3.8 mmol/L (3.4-5.0); Sodium 132 mmol/L (137-145)
[2024-11-04 13:38] LABS: INR 0.9; Prothrombin Time 12.3 Seconds (11.1-14.7)
[2024-11-04 13:39] LABS: Partial Thromboplastin Time 35.6 Seconds (22.3-36.8)
== END 2024-11-04 11:49 | disposition home or self-care (01) ==
LOC: ANHSURGERY 11:56
PROVIDERS: PCP Internal Medicine; Visit Provider Neurological Surgery
DX: R94.31 Abnormal electrocardiogram [ECG] [EKG] (principal); T85.192A Other mechanical complication of implanted electronic neurostimulator of spinal cord electrode (lead), initial encounter
CPT/HCPCS: 36415; 71046; 80048; 81003; 85027; 85610; 85730; 93005

== ENCOUNTER 2024-11-16 01:17 | Day surgery (SDC) | payer MEDICARE, SELFPAY ==
--- NOTE | 2024-11-04 11:54 | PC.NURSE ---
Report to the Outpatient Waiting Room, entrance under the green pavilion located off [facility], at time _6 AM on date _11/16/24 . Planned Procedure Time: __7:30 AM .? Time changes happen often and if your time is changed the preop area will call you the afternoon before. - You and your visitor will be asked to self-screen and do not enter if you have any COVID symptoms. Please call surgeon if you need to reschedule. - A mask is optional within the hospital at this time. Patients may have clear liquids (water, carbonated beverages, clear teas, apple juice) until 3 hours prior to surgery( 4:30 AM) with a maximum of 20 ounces. - No food from midnight until time of surgery and no smoking, or chewing tobacco (or any form of nicotine). No chewing gum, candy or mints. Take only the following medications with a SIP of water on the morning of surgery: ____AMLODIPINE,ATENOLOL,AZATHIOPRINE,EYE DROPS_,HYDROCODONE IF NEEDED FOR PAIN DO NOT STOP ANY OF YOUR OTHER PRESCRIPTION MEDICATIONS PRIOR TO SURGERY EXCEPT THE FOLLOWING Hold all vitamins and supplements for 3 days per anesthesiologist. LAST DOSE 11/12/24 Medications to discontinue per physician NONE Date to take last dose Please no make-up, nail cuban, hairspray, perfume, deodorant, or body powder the day of surgery.? No jewelry (including any body piercings) or valuables the day of surgery, leave them at home.? Please take a shower or bath the night before, or the morning of, surgery with an antibacterial soap.? Wear comfortable, loose fitting clothing.? Children are encouraged to wear pajamas. - Jewelry must be removed prior to entering the operating room.? Rings and piercings that are not removed may be cut off. - The hospital will not accept responsibility for valuables.? - Please leave all valuables, including medications, at home the day of surgery. If you are going home after surgery, a licensed national flatbed truck driver must drive you home.? - NO public transportation without another adult if you receive anesthesia. - We recommend that an adult stay with you for 24 hours following discharge. - We also recommend that you do not drive, make important decision, drink alcoholic beverages, or take any drugs that were not prescribed by your health care provider for at least 24 hours after your discharge time. Follow any additional instructions given to you from your surgeon. VERBAL AND WRITTEN instructions given to _PATIENT and asked if any additional questions and then verbalized understanding. Patient advised to call surgeon office or pre surgery nurse liaison [phone] if any additional questions.
[2024-11-04 11:59] VITALS: BMI 25.8
[2024-11-04 12:44] VITALS: BP 128/75; PULSE 52; RESP 18; TEMP 36.6; O2SAT 97
[2024-11-16] VITALS (8 sets, daily range): BP systolic 106–150; BP diastolic 73–94; PULSE 58–69; RESP 14–16; TEMP 35.8–36.3; O2SAT 95–100
--- NOTE | ~2024-11-16 | XR_ITS ---
XR fluoroscopy no charge Indication: Stimulator removal and replacement TECHNIQUE: Fluoroscopy used during Stimulator removal and replacement performed by [Chiqui chavez MD] on 11/16/2024. 2 seconds of fluoroscopy with 4 fluoroscopic images captured. FINDINGS: Correlate with procedure note. IMPRESSION: Fluoroscopy used during Stimulator removal and replacement. Reviewed, dictated and finalized at location []
--- OUTSIDE RECORDS SUMMARY | 2024-11-16 01:20 | XMS_ITS | Data Portability ---
Author Organization [facility] for [facility], [id number] Address [address] [place] [address] Assessment No assessment recorded. Plan of Treatment Reminders Order Date Submit Date Provider Last Modified By Organization Details Last Modified Time Details Appointments ANNUAL- EST 15 2025 12:00P M JESUS ARGUELLES MD Not available Not available Not available Lab None recorded. Referral None recorded. Procedures None recorded. Surgeries None recorded. Imaging MAMMO, screening , digital, bilateral 20[facility] [address] [place], [address], 09/14/2024 12:56:02 Medication Orders None recorded. Patient TargetsNo targets recorded. Patient InstructionsNo instructions recorded. Reason for Referral None Reported. Results Created Date Observation Date Name Description Value Unit Range Abnormal Flag Note LastModifiedBy Organization Detail LastModifiedTime 10/06/1910/04/2024 MAMMO , scree patricia, digit al, bilat eral No observ ation record ed. [facility] [address] [place], [address], 10/06/2024 12:14:04 Result Notes None recorded. Problems Name Problem SNOMED Code Status Onset Date Resolution Date Notes Provider Name and Address Organization Details Recorded Time Arthritis 0382710 Active 2024 Sudheer hill, [facility] 12:00:29 Autoimmune disease 26083481 Active 2024 Sudheer Wuebbels null, [place] - [facility] 5 12:00:45 Osteopenia 296974520 Active 2024 Sudheer [place] [facility] 5 12:01:12 Liver enzymes level above reference range 647688113 Active 2024 Sudheer [place] [facility] 5 12:01:52 Hypertensi ve disorder 01597401 Active 2024 Sudheer [place] [facility] 5 12:02:11 Scoliosis deformity of spine 402186412 Active 2024 Sudheer [place] - [facility] 5 12:02:26 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 Procedures Surgical History Date Name Laterality Status Provider Name and Address Organization Details Recorded Time 10/05/19 25 Date of Last Mammogram completed JESUS ARGUELLES MD [address] [facility] [address], [place], [address], [facility] - [facility] 10/06/2024 09:58:30 06/08/19 17 Date of Last Colonoscopy completed Sudheer Dunn [place] - [facility] 08/23/2024 12:04:00 10/18/19 10 Date of Last Pap Smear completed Sudheer Dunn [place] - [facility] 08/23/2024 12:03:22 Tonsillectomy completed [facility] for [facility] 08/23/2024 12:08:41 operation on hip joint completed [facility][1] for [facility] 08/23/2024 12:08:53 total replacement of hip completed [facility][1] for [facility] 08/23/2024 12:09:04 procedure on foot completed [facility][1] for [facility] 08/23/2024 12:09:36 procedure on eye completed [facility][1] for [facility] 08/23/2024 12:14:31 Colonoscopy completed [facility][1] for [facility] 08/23/2024 12:14:40 partial resection of colon completed [facility][1] for [facility] 08/23/2024 12:17:08 excision of bunion completed [facility][1] for [facility] 08/23/2024 12:17:45 Breast Biopsy completed [facility][1] for [facility] 08/23/2024 12:18:00 procedure on back completed [facility]] for [facility] 08/23/2024 12:18:22 Unlisted procedure spine completed Not Available [facility] 10/06/2024 14:15:22 Partial removal of colon completed Not Available [facility] 10/06/2024 14:15:23 foot repair completed Not Available [facility] 10/06/2024 14:15:23 tonsillectomy completed Not Available [facility] 10/06/2024 14:15:23 breast biopsy and related procedures completed Not Available [facility] 10/06/2024 14:15:23 repair of hip completed Not Available [facility] 10/06/2024 14:15:23 repair of eye completed Not Available [facility] 10/06/2024 14:15:23 colonoscopy completed Not Available [facility] 10/06/2024 14:15:23 Imaging Results None recorded. Procedure [...] Updated DateTime 08/24/2024 142.88 cm 26.9 kg/m2 94501.68 g 120 mm[Hg] 60 mm[Hg] Sudheer Dunn [facility] for [facility] 13:03:33 Social History Question Answer Notes LastModified by Organizat ion Details LastModified Time Tobacco Smoking Status Never Smoker Sudheer Dunn [facility] 08/24/2024 13:03:44 Do You Have An Advance [...] Functional Status Question Answer Note LastModified by OrganVyatta ion Details LastModified Time Do you use [...] SNOMED-CT Code Diagnosis ICD10 Code Diagnosis Note [id number] JESUS ARGUELLES MD [id number] [facility] [address] [place] [address] 08/24/2024 12:44:52 08/24/2024 13:22:26 Screening mammography 96694747 Z12.31 Gynecologi c examination 45322047 Z01.419 Health Concerns Section Related Observation LastModified by Organization Detai ls LastModified Time None Recorded Concern Status LastModified by Organization Details LastModified Time None Recorded Advance Directives Directive Y: Payers Insurance Date Sequence Insurance Name Policy Number Policy Valadez Covered Member ID Valadez Member ID Guarantor Name 09/05/2024 2 [employer] (MEDICARE SUPPLEMENT) Sita Saunders [id number] Sita Saunders 08/24/2024 1 [place] Sita Saunders [id number] Sita Saunders Notes Date Note Type Note Provider Name and Address Organization Details Recorded Time 08/24/2024 text/html Annual [facility] - McwhcReported bypatient.Urinary symptoms:No hematuria; No incontinence Vulvar complaints:None Vaginal complaints:none Gastrointestinal symptoms:no gastrointestinal symptoms Breast:No breast pain; No breast lump; No nipple discharge Menopausal Symptoms:No menopausal symptoms; Normal vaginal lubrication Psychological symptoms:No depression; No anxiety; No 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
--- OUTSIDE RECORDS SUMMARY | 2024-11-16 01:20 | XMS_ITS | Clinical Summary ---
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
--- OUTSIDE RECORDS SUMMARY | 2024-11-16 01:20 | XMS_ITS | Clinical Summary ---
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 Gender Identity Not on file Sexual Orientation Not on file Obstetrics History Last Filed Vital Signs Vital Sign Reading Time Taken Comments Blood Pressure 94/54 05/15/2012 8:15 AM LOGISTICS PLANNING MANAGER Pulse 59 05/15/2012 8:15 AM LOGISTICS PLANNING MANAGER Temperature 36.7 C (98 F) 05/21/2020 10:39 AM LOGISTICS PLANNING MANAGER Respiratory Rate 17 11/19/2020 11:15 AM [...] Zoster Vaccine Completed 05/05/2018, 02/25/2018 Insurance MEDICARE [facility] Care Teams Receptionist Telephone Operator Relationship Specialty Start Date End Date Molina Castillo MD [address] [place] [id number] PCP - General 07/17/09
--- OUTSIDE RECORDS SUMMARY | 2024-11-16 01:20 | XMS_ITS | Referral Summary ---
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 Gender Identity Not on file Sexual Orientation Not on file Last Filed Vital Signs Vital Sign Reading Time Taken Comments Blood Pressure 94/54 05/15/2012 8:15 AM JOURNEYMAN PRESSMAN Pulse 59 05/15/2012 8:15 AM JOURNEYMAN PRESSMAN Temperature 36.7 C (98 F) 05/21/2020 10:39 AM JOURNEYMAN PRESSMAN Respiratory Rate 17 11/19/2020 11:15 AM CDT Oxygen Saturation - - Inhaled Oxygen Concentration - - Weight 51.3 kg (113 lb) 11/19/2020 11:15 AM CDT Height 152.4 cm (5') 11/19/2020 11:15 AM CDT Body Mass Index 22.07 11/19/2020 11:15 AM CDT Plan of Treatment Not on file Insurance MEDICARE [facility] [employer] Care Teams Motor Tune Up Specialist Relationship Specialty Start Date End Date Molina Castillo MD [address] [place] [address] PCP - General 07/17/09
--- OUTSIDE RECORDS SUMMARY | 2024-11-16 01:20 | XMS_ITS | Encounter Summary ---
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 Chen in 2 weeks per [facility] Msg documented in this encounter Plan of Treatment Upcoming Encounters Date Type Department Care Team (Late st Contact Info) Description 03/13/2025 11:00 AM CDT Office Visit [facility] [place] [address] [place] [address], [place] [address] Casey Choi MD [address] [place] [address] [place] [address] documented as of this encounter Goals Goal [...] on filedocumented in this encounter Care Teams Channel Process Plant Operator Relationship Specialty Start Date End Date Tanmay Velarde MD [address] [facility] [address] [place] [address] PCP - General Internal Medicine 01/28/22 documented as of this encounter
--- OUTSIDE RECORDS SUMMARY | 2024-11-16 01:20 | XMS_ITS | Clinical Summary ---
Author Organization [facility] [employer] Address [address] [place] [address] [place] [address] Care Team Providers Care Mentally Retarded Teacher Name Role Phone Tanmay Velarde MD Primary Care Provider [phone] Source Comments [facility],non-owned Affiliates and Associated Physician Practices is amultiple site organization consisting of ambulatory clinics and hospital sitesin [place], [place], [place] and [place]. This disclosure is being madepursuant to the Care Everywhere program and may not contain all information available regarding this patient. Last updated 18.[facility] [employer] Allergies Active Allergy Reactions Criticality Noted Date [...] on file Legal Sex Female 5:32 PM FAMILY PHYSICIAN Gender Identity Not on file Sexual Orientation [...] Description 03/13/2025 11:00 AM CDT Office Visit [facility] [place] [address] [facility], [place] [address] Casey Choi MD [address] [place] [address] Health Maintenance Due Date Last Done Comments [...] last dose Medical Devices Implanted Type Area C Unix Developer Device Identifier Shelf Expiration Date Model / Serial / Lot Lead Nrstm 60cm Penta 3mm Pdl 16 [facility] - [id number] Implanted:Qty: 1 on 01/29/2023 by Jesús Chen MD at [facility] Left: Spine [employer] 12/16/2024 [id number] / [id number] / Sys Impl 1.9mm Fibertak Biceps Galt - [id number] Implanted:Qty: 1 on 01/29/2023 by Jesús Chen MD at [facility] [place] Left: Spine [employer] 12/09/2024 [id number]-3670 / [id number] / Slnt Dura Duraseal Pg Trilysine Amine 5 Implanted:Qty: 1 on 01/29/2023 by Jesús Chen MD at [facility] [place] Left: Spine [employer] Krista 03/07/2024 [id number] / / [id number] Implantable Pulse Generator Implanted:Qty: 1 on 01/29/2023 by Jesús Chen MD at [facility] [place] Left: Spine 3670 / / [place] [address] MEDICARE COMMERCIAL GENERIC MEDICARE Care Teams Mentally Retarded Teacher Relationship Specialty Start Date End Date Tanmay Velarde MD [address] [address] PCP - General Internal Medicine 01/28/22
[2024-11-16] MEDS: LACTATED RINGERS 1,000 ML 30 ML IV CONT ×2 (06:30→08:46)
--- NOTE | 2024-11-16 07:07 | WPDANESEPPF ---
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 Patient Data Age: 79 Gender: F Height: 1.44 m Weight: 53.2 kg Last Vital Signs Temp 36.6 C 11/04/24 12:44 Pulse 52 L 11/04/24 12:44 Resp 18 11/04/24 12:44 BP 128/75 11/04/24 12:44 Pulse Ox 97 11/04/24 12:44 O2 Del Method Room Air 11/04/24 12:44 Allergies Allergy/AdvReac Type Severity Reaction Status Date / Time No Known Drug Intolerances AdvReac none Verified 11/04/24 12:00 Home Medications ?Medication ?Instructions ?Recorded ?Confirmed ?Type atenolol 100 mg-chlorthalidone 25 1 tablet PO DAILY 12/13/21 11/04/24 History mg tablet azathioprine 50 mg tablet 25 mg PO DAILY 12/13/21 11/04/24 History hydrochlorothiazide 12.5 mg capsule 12.5 mg PO DAILY 12/13/21 11/04/24 History olmesartan 40 mg-amlodipine 10 1 tablet PO DAILY 12/13/21 11/04/24 History mg-hydrochlorothiazide 12.5 mg tablet omeprazole 40 mg capsule,delayed 40 mg PO DAILY 12/13/21 11/04/24 History release alirocumab 75 mg/mL subcutaneous 75 mg subcut Q14D 09/28/24 11/04/24 History pen injector (Praluent Pen) carboxymethylcellulose sodium 0.5 1 drp EACH EYE BID PRN dry eye(s) 09/28/24 11/04/24 History % eye drops (Refresh Tears) cyclosporine 0.05 % eye drops 1 drp EACH EYE Q12H 09/28/24 11/04/24 History hydrocodone 5 mg-acetaminophen 325 1 tablet PO BID PRN pain 09/28/24 11/04/24 History mg tablet amlodipine 5 mg tablet 5 mg PO DAILY 11/04/24 11/04/24 History atenolol 100 mg tablet 100 mg PO DAILY 11/04/24 11/04/24 History calcium carb-ergocalciferol (vit 1 tablet PO DAILY 11/04/24 11/04/24 History D2) 600 mg calcium-200 unit tablet magnesium 250 mg tablet 250 mg PO DAILY 11/04/24 11/04/24 History multivitamin 1 tablet PO DAILY 11/04/24 11/04/24 History olmesartan 20 mg tablet 20 mg PO DAILY 11/04/24 11/04/24 History Patient hx anesthesia problems: none Family hx anesthesia problems: none Results Review: All pre-operative results and documents have been reviewed as part of the pre-operative evaluation. [facility] Past Medical History Medical History Cataract Autoimmune disease Hypertension Hypercholesteremia Arthritis Surgical History Surgical History History of tonsillectomy H/O resection of large bowel Hx of appendectomy Joint replaced Family History Family History Other Heart disease Hypertension Social History Social History Smoking status: Never smoker Alcohol intake: current Alcohol use details: occasional Substance use: never Substance use type: does not use Do You Feel Safe in your Home?: Yes Lack of Transportation: No Lack of Food: Never True Current Housing: I Have Housing Concerned About Future Housing: No Difficulty Paying Gas/Electric Bills: No Difficulty Paying for Meds: No Currently Unemployed: No Education: Master's Degree or Higher Difficulty w/ Childcare or Family Care: No Living arrangements: alone Occupation/Education: retired Anes - [employer] Final PreProcedure Day of Procedure 11/16/24 07:07 Patient weight: normal Heart: regular rate and rhythm Lungs: clear to auscultation Airway: Mallampati scale class II Neurological: alert and oriented Last oral intake: >/= 8 hours ASA classification: III Emergent: no Anesthetic plan: proceed Anesthesia type and monitoring: general ETT and standard monitoring Results Review: All pre-operative results and documents have been reviewed as part of the pre-operative evaluation. Informed Consent: The patient's anesthetic plan and its attendant risks and benefits were discussed with the patient/family/POA. Questions were solicited and answers provided to the satisfaction of the patient/family/POA.
--- NOTE | 2024-11-16 07:15 | WPDHPUPDATE1 ---
History and Physical Update Update Date/Time: 11/16/24 07:15 History and Physical has been reviewed, including an updated exam of the patient. There are NO changes in the patient's condition. Risks, benefits, and alternatives have been discussed and questions answered. Patient agrees to proceed with procedure.
--- NOTE | 2024-11-16 07:15 | PM.IMHP ---
H&P: HPI History of Present Illness Date/Time: 11/16/24 07:15 Chief Complaint: back pain Narrative: Ms. Saunders is an 79-year-old female with history hypertension and autoimmune hepatitis who was referred by [facility] for evaluation of low back pain. She has had pain for many years and had actually seen Dr. Nunes in this office about 3 years ago for back pain. She has only ever had pain in her lower back and denies ever having radicular pain, paresthesias, or weakness into the legs. She has had a number of treatments over the years including physical therapy, scoliosis brace, and many injections including both epidural steroid injections and radiofrequency ablations without long-lasting relief. In 2022, she had an [employer] spinal cord stimulator placed by Dr. Chen at [facility]. This has been helpful for right-sided low back pain that has not helped her left-sided pain. She has undergone further injections recently with pain management without relief of this pain and was referred back to discuss additional options. Her pain is worst with standing and walking. She can only walk up to a third of a mile or stand for 10-15 minutes at 1 time. She has tried tramadol in the past and most recently [place] which she takes once in the morning. She no longer uses the scoliosis brace as this has not been helpful for her. Review of Systems Review of Systems: All systems reviewed & are unremarkable except as noted in HPI and below PMFSH Past Medical History Medical History Cataract Autoimmune disease Hypertension Hypercholesteremia Arthritis Surgical History Surgical History History of tonsillectomy H/O resection of large bowel Hx of appendectomy Joint replaced Family History Family History Other Heart disease Hypertension Social History Social History Smoking status: Never smoker Alcohol intake: current Alcohol use details: occasional Substance use: never Substance use type: does not use Do You Feel Safe in your Home?: Yes Lack of Transportation: No Lack of Food: Never True Current Housing: I Have Housing Concerned About Future Housing: No Difficulty Paying Gas/Electric Bills: No Difficulty Paying for Meds: No Currently Unemployed: No Education: Master's Degree or Higher Difficulty w/ Childcare or Family Care: No Living arrangements: alone Occupation/Education: retired Meds Home Medications and Allergies Home Medications ?Medication ?Instructions ?Recorded ?Confirmed ?Type atenolol 100 mg-chlorthalidone 25 1 tablet PO DAILY 12/13/21 11/04/24 History mg tablet azathioprine 50 mg tablet 25 mg PO DAILY 12/13/21 11/04/24 History hydrochlorothiazide 12.5 mg capsule 12.5 mg PO DAILY 12/13/21 11/04/24 History olmesartan 40 mg-amlodipine 10 1 tablet PO DAILY 12/13/21 11/04/24 History mg-hydrochlorothiazide 12.5 mg tablet omeprazole 40 mg capsule,delayed 40 mg PO DAILY 12/13/21 11/04/24 History release alirocumab 75 mg/mL subcutaneous 75 mg subcut Q14D 09/28/24 11/04/24 History pen injector (Praluent Pen) carboxymethylcellulose sodium 0.5 1 drp EACH EYE BID PRN dry eye(s) 09/28/24 11/04/24 History % eye drops (Refresh Tears) cyclosporine 0.05 % eye drops 1 drp EACH EYE Q12H 09/28/24 11/04/24 History hydrocodone 5 mg-acetaminophen 325 1 tablet PO BID PRN pain 09/28/24 11/04/24 History mg tablet amlodipine 5 mg tablet 5 mg PO DAILY 11/04/24 11/04/24 History atenolol 100 mg tablet 100 mg PO DAILY 11/04/24 11/04/24 History calcium carb-ergocalciferol (vit 1 tablet PO DAILY 11/04/24 11/04/24 History D2) 600 mg calcium-200 unit tablet magnesium 250 mg tablet 250 mg PO DAILY 11/04/24 11/04/24 History multivitamin 1 tablet PO DAILY 11/04/24 11/04/24 History olmesartan 20 mg tablet 20 mg PO DAILY 11/04/24 11/04/24 History Allergies Allergy/AdvReac Type Severity Reaction Status Date / Time No Known Drug Intolerances AdvReac none Verified 11/04/24 12:00 Exam Narrative: Generator in right buttock Mid thoracic incision well healed Some tenderness to palpation of left lumbar paraspinal region Unless otherwise stated above, the patient's physical exam is as follows: General: -Well developed and well nourished. No acute distress. Cooperative with exam. Mental status: -Awake and oriented to person, place, and time. Affect is normal. -Fund of knowledge appropriate -Recent and remote memory are intact -Attention span and concentration appear normal -Language function is normal -There is no evidence of aphasia in conversational speech. Cranial nerves: -CN II: Visual mccarthy full to bedside confrontation -CN III, IV, : Pupils equal, round, and reactive to light; extraocular movements, no ptosis, no nystagmus -CN V: Facial sensation intact in V1 through V3 distributions -CN VII: Face symmetric -CN VIII: Hearing intact to conversational speech -CN IX, X: Palate elevates symmetrically; normal phonation -CN XI: Symmetric full strength of sternocleidomastoid and trapezius muscles -CN XII: Tongue protrudes midline Integumentary: -No obvious skin lesions or masses Motor: -Muscle tone normal without spasticity of flaccidity. No atrophy. No fasciculations. -No pronator drift -Right upper extremity: deltoid 5/5, biceps 5/5, triceps 5/5, wrist extensors 5/5, wrist flexors 5/5, intrinsics 5/5 -Left upper extremity: deltoid 5/5, biceps 5/5, triceps 5/5, wrist extensors 5/5, wrist flexors 5/5, intrinsics 5/5 -Right lower extremity: iliopsoas 5/5, quadriceps 5/5, hamstrings 5/5, tibialis anterior 5/5, gastroc-soleus 5/5, EHL 5/5 -Left lower extremity: iliopsoas 5/5, quadriceps 5/5, hamstrings 5/5, tibialis anterior 5/5, gastroc-soleus 5/5, EHL 5/5 Sensory: -Intact to light touch throughout -Normal proprioception throughout Reflexes: -1-2+ DTR's throughout -No Womack's, clonus, or Babinski bilaterally Musculoskeletal: -Lumbar spine: no tenderness to palpation, no pain, and normal lumbosacral spine movements -[id number] test negative -Hip: normal range of motion, no crepitus bilaterally. No pain reproduced on WOODY or FAIR testing bilaterally -Knee: no instability, subluxation or laxity, and no crepitus bilaterally I personally reviewed the CT lumbar spine and x-rays of the lumbar spine which show a significant levoscoliosis Wick angle about 60? and significant degenerative changes throughout the thoracic and lumbar spine Assessment and Plan Assessment and plan (1) Spinal cord stimulator dysfunction: Code(s): T85.192A - Other mechanical complication of implanted electronic neurostimulator of spinal cord electrode (lead), initial encounter Status: Acute Plan Ms. Vizcarra is an 79-year-old female a long history of lower back pain for which she has had a number of surgical and nonsurgical treatments including placement of an [employer] spinal cord stimulator in 2022. Her pain has been uncontrolled lately despite additional epidural steroid injections and radiofrequency ablations in lumbar spine. On review of her imaging, she has very significant levoscoliosis with diffuse degenerative changes throughout the thoracic and lumbar spines. Ultimately, I do not recommend any surgical intervention to the spine itself. Surgery to correct her scoliosis would be an extensive operation and would not be worth the risks, particularly at her age. I did have a long conversation with Valerie from [employer] regarding her stimulator. She has been able to get good coverage of her right side of her back but not her left side despite multiple reprogramming so over the last 2 years. She does have impedances on the left side of her current lead, which may explain why they are unable to get adequate coverage on the left side. She also has the Penta lead which has fewer programming options than the other version. Per my discussion with Valerie, replacing the stimulator paddle and generator with the rechargeable version may eliminate the impedance issue and allow for additional programming options that would give her better coverage of both sides of her lower back. I therefore discussed surgery with her in the form of removal of her spinal cord stimulator and generator and replacement through a revision T8 laminotomy for placement of a new stimulator and generator. We discussed surgery in detail including risks, expected recovery, and restrictions after surgery. We discussed the risk that this may not ultimately improve her pain control. We also discussed the risk of needing to perform additional laminotomies in order to achieve ideal placement of the new paddle. She expressed understanding of all this and wishes to proceed with surgery, understanding that this does not guarantee relief of all of her back pain.
[2024-11-16] MEDS: ceFAZolin 2 GM/D5W 50 ML 2 GM/50 ML BAG IVPB (07:28)
[2024-11-16] MEDS: VANCOMYCIN HCL 1,000 MG VIAL 1000 MG TOPICAL (07:57)
[2024-11-16] MEDS: BUPIVACAINE/EPINEPHRINE 0.5% 30 ML VIAL INFILTRATE (07:57)
--- NOTE | 2024-11-16 08:47 | PM.OP ---
Procedure Note - Brief Procedure Note - Brief Date of procedure: 11/16/24 spinal cord stimulator dysfunction Post-op diagnosis: Same Procedure performed: Removal of previous paddle spinal cord stimulator and generator Placement of new [employer] spinal cord stimulator and generator Surgeon: Chiqui Carvajal MD Anesthesia: GETA Drains: No Packing: No Pathology: None sent Complications: None Condition: Stable Disposition: PACU
--- NOTE | 2024-11-16 08:54 | P.OP_ITS ---
Procedure Note - Detailed Date of Procedure 11/16/24 Pre-op Diagnosis spinal cord stimulator dysfunction Post-op Diagnosis Same Procedure Performed 1. Removal of existing spinal cord stimulator paddle and generator 2. Placement of new spinal cord stimulator paddle and generator 3. Use of C-arm for fluoroscopy Surgeon Chiqui Carvajal MD [employer] [place] Anesthesia General Description of Procedure The patient was brought to the OR where general anesthesia was induced. The patient was turned prone onto the OR table with Dillon frame. All pressure points were padded. C-arm was used to verify the location of the thoracic stimulator. The previous left gluteal incision and midline thoracic incision were marked. The surgical site was prepped and draped in usual sterile fashion. Perioperative antibiotics were given. Local anesthesia was injected into the planned incisions. A 10-blade scalpel was used to open the existing left gluteal and thoracic incisions. The generator was exposed and was removed from the pocket. This was disconnected from the stimulator leads and removed. Next, the thoracic incision was opened with the scalpel, and the soft tissue was dissected with the bovie. The leads were identified and followed to the paddle. The paddle was found to be laying on the dura without any overlying lamina. The paddle was exposed, leaving a lip of tissue around the edges of the stimulator to help hold the new paddle in place against the dura. The paddle was removed, and the dura was from the cranial lamina to allow placement of the new, longer paddle electrode. The anchors were placed and secured to the muscle which allowed the paddle to sit against the dura. Placement was confirmed with the C-arm. The leads were tunneled to the gluteal incision. The leads were connected to the new generator which was then placed into the gluteal pocket. The generator was secured with a 2-0 silk suture. Both incisions were irrigated copiously. Hemostasis was ensured in the thoracic incision with the bipolar and Surgiflo. Stimulon beads were placed into both incisions. The fascia was closed with 0 vicryl. The dermis was closed with 2-0 and 3-0 vicryl. The dermis at the generator site was closed with 2-0 vicryl. The skin was closed at all incisions with 4-0 monocryl. Dermabond was then placed. The patient was returned supine, extubated, and transferred to PACU. Billing codes: 50181, 04206, 01460, 92462 Estimated Blood Loss 10 Drains No Packing No Pathology None sent Complications None Condition Stable Disposition PACU [facility] Billing Surgery - Charge Forward: Surgery Billing
[2024-11-16] MEDS: fentaNYL CITRATE INJ (*CRX) 100 MCG/2 ML VIAL 25 MCG IV PUSH ×4 (08:57→09:27)
== END 2024-11-16 10:45 | disposition home or self-care (01) ==
PROVIDERS: PCP Internal Medicine; Visit Provider Neurological Surgery
PROC: (CPT 63685; principal; 2024-11-16 07:30)
DX: T85.192A Other mechanical complication of implanted electronic neurostimulator of spinal cord electrode (lead), initial encounter (principal); M54.50 Low back pain, unspecified; G89.29 Other chronic pain; Y83.1 Surgical operation with implant of artificial internal device as the cause of abnormal reaction of the patient, or of later complication, without mention of misadventure at the time of the procedure
CPT/HCPCS: 63685; 63664; 99199; C1778; C1820; J0330; J0690; J1100; J2003; J2405; J2704; J3010; J3370; J7120

== ENCOUNTER 2025-04-04 08:09 | Outpatient (CLI) | payer MEDICARE, SELFPAY ==
--- NOTE | ~2025-04-04 | XR_ITS ---
EXAMINATION: XR knee LT min 4V, 04/04/2025 8:17 CDT HISTORY: Chronic L knee pain COMPARISON: No comparisons available. Findings: No acute fracture or malalignment. Moderate tricompartmental degenerative changes Soft tissues unremarkable. Impression: No acute fracture or malalignment. Reviewed, dictated and finalized at location P. Impression: No acute fracture or malalignment.
== END 2025-04-04 08:10 | disposition home or self-care (01) ==
LOC: MICIMG 08:14
PROVIDERS: PCP Internal Medicine
DX: M25.562 Pain in left knee (principal)
CPT/HCPCS: 73564